=== PATIENT | male | born 1965 | race Caucasian/White ===

== ENCOUNTER 2021-11-20 22:08 | Inpatient (IN) ==
[2021-11-20] MEDS ORDERED: EPINEPHrine 1 MG/10 ML SYRINGE IV ONE ×2 (22:12→22:26)
[2021-11-20] MEDS ORDERED: CALCIUM CHLORIDE 1,000 MG/10 ML SYRINGE IV ONE (22:15)
[2021-11-20] MEDS ORDERED: DEXTROSE 50% 25 GM/50 ML SYRINGE IV ONE (22:16)
[2021-11-20] MEDS ORDERED: SODIUM BICARBONATE 50 MEQ/50 ML SYRINGE IV ONE (22:18)
[2021-11-20] MEDS ORDERED: NOREPINEPHRINE 4 MG/4 ML VIAL IV ONE (22:26)
[2021-11-20] MEDS: NOREPINEPHRINE 8 MG in SODIUM CHLORIDE 0.9% 242 ML IV PRN (22:26)
[2021-11-20] MEDS ORDERED: NALOXONE 0.4 MG/ML VIAL IV ONE (22:31)
[2021-11-20] MEDS ORDERED: PIPERACILLIN/TAZOBACTAM 3,375 MG in SODIUM CHLORIDE 0.9% 100 ML IV STA (22:32)
[2021-11-20] MEDS ORDERED: DEXTROSE 50% 25 GM/50 ML SYRINGE IV STA (22:32)
[2021-11-20] MEDS ORDERED: NOREPINEPHRINE 16 MG in SODIUM CHLORIDE 0.9% 234 ML IV PRN (22:32)
[2021-11-20] MEDS ORDERED: SODIUM CHLORIDE 0.9% 1,000 ML IV STA (22:32)
[2021-11-20] MEDS ORDERED: NALOXONE 0.4 MG/ML VIAL IV STA (22:32)
[2021-11-20 22:34] VITALS: BP 141/64
[2021-11-20 22:48] LABS: Basophils % 0.8 % (0.0-0.8); Eosinophils % 0.2 % (0.00-10.9); Hematocrit 42.9 VOL% (42.0-52.0); Hemoglobin 13.3 GM/DL (14.0-18.0); Immature Granulocytes % 3.2 %; Immature Granulocytes Absolute 0.15 #; Lymphocytes # 3.4 10*3/uL (1.4-4.0); Lymphocytes % 72.2 % (21.2-54.2); Mean Corpuscular Volume 107.3 FL (87-102); Mean Platelet Volume 12.6 FL (9.6-12.0); Monocytes % 11.5 % (1.7-12.7); NRBC # 0.07 10*3/uL; Neutrophils % 12.1 % (38.7-73.9); Platelet Count 66 T/CUMM (130-400); Red Cell Distribution Width 12.7 % (9.3-17.3); White Blood Count 4.7 T/CUMM (4-12)
[2021-11-20 22:59] LABS: Phenytoin (Dilantin) 0.8 UG/ML (10-20)
[2021-11-20 23:00] LABS: Acetaminophen < 2.0 UG/ML (10-30)
[2021-11-20] MEDS ORDERED: LACTATED RINGERS 1,000 ML IV ONE (23:00)
[2021-11-20 23:06] LABS: INR 1.1; PT Patient Result 11.9 SECS (10.5-12.0)
[2021-11-20 23:07] LABS: Lactic Acid 26.1 MMOL/L (0.4-2.0)
[2021-11-20 23:12] LABS: Prolactin 10.8 ng/mL (2.1-17.7)
[2021-11-20] MEDS ORDERED: DILTIAZEM 25 MG/5 ML VIAL IV ONE (23:18)
[2021-11-20] MEDS ORDERED: THIAMINE INJ 100 MG, FOLIC ACID INJ 1 MG, MAGNESIUM SULF INJ 2 GM, MULTIVITAMIN INJ 10 ... IV ONE (23:21)
[2021-11-20 23:22] LABS: Lymphocytes 75 % (20-55); Platelet Estimate Decreased; Segmented Neutrophils 11 % (50-85); Total Cells Counted 100
[2021-11-20] MEDS ORDERED: VANCOMYCIN INJ 1,000 MG in SODIUM CHLORIDE 0.9% 250 ML IV STA (23:22)
[2021-11-20] MEDS ORDERED: DILTIAZEM 100 MG VIAL.ADD IV ONE (23:43)
[2021-11-20] MEDS ORDERED: DILTIAZEM INJ 100 MG in SODIUM CHLORIDE 0.9% 100 ML IV SCH (23:45)
[2021-11-20] MEDS ORDERED: DILTIAZEM 50 MG/10 ML VIAL IV STA (23:59)
[2021-11-21 00:10] LABS: Alanine Aminotransferase 197 U/L (16-61); Albumin 3.6 G/DL (3.4-5.0); Alkaline Phosphatase 92 U/L (45-117); Aspartate Amino Transferase 317 U/L (0-37); Blood Urea Nitrogen 9 MG/DL (7-18); CKMB % 0.8 %; Calcium 11.2 MG/DL (8.5-10.1); Carbon Dioxide 17 MMOL/L (21-32); Glucose 301 MG/DL (74-106); Osmolality,Calculated 290.3 MOS/KG (273-304); Potassium 4.7 MMOL/L (3.5-5.1); Sodium 141 MMOL/L (136-145); Total Protein 6.8 G/DL (6.4-8.2)
[2021-11-21] MEDS ORDERED: LORazepam 2 MG/1 ML VIAL IV STA (00:10)
[2021-11-21 00:11] LABS: Estimated Glom Filtration Rate 0 ML/MIN
[2021-11-21 00:16] LABS: ABG Base Excess -10.7 MMOL/L (-2.5-2.5); ABG HCO3 18.9 MMOL/L (20-26); ABG Oxygen Saturation 88.9 % (95-100); ABG PCO2 57.6 MM HG (35-48); ABG PO2 79.5 MM HG (80-95); ABG TCO2 20.7 MMOL/L (23-27); Allen Test Positive; Pt O2 Delivery Device Ventilator
[2021-11-21] MEDS ORDERED: NOREPINEPHRINE 4 MG/4 ML VIAL IV ONE ×2 (00:17→07:34)
[2021-11-21 00:20] LABS: Bacteria,Urine Occasional /HPF (Few); Bilirubin,Urine Negative (Negative); Blood, Urine Negative (Negative); Glucose,Urine (UA) Negative (Negative); Ketones,Urine 5 mg/dL (Negative); Mucus,Urine Few /LPF (Occasional); Nitrite,Urine Negative (Negative); Protein,Urine 100 MG/DL; RBC,Urine 4 /HPF (0-4); Urine Appearance Slightly Hazy (Clear); Urine Color Amber (Yellow); Urine Specific Gravity 1.023 (1.001-1.035)
[2021-11-21 00:21] LABS: ABG PH 7.135 (7.35-7.45)
[2021-11-21] MEDS ORDERED: SODIUM BICARBONATE 50 MEQ/50 ML VIAL IV STA (00:26)
[2021-11-21 00:29] LABS: Barbiturates Screen,Urine Negative (Negative); Benzodiazepines Screen,Urine Positive (Negative); Cannabinoid Screen,Urine Negative (Negative); Opiate Screen,Urine Negative (Negative); Phencyclidine Screen,Urine Negative (Negative)
[2021-11-21] MEDS: NOREPINEPHRINE 8 MG in SODIUM CHLORIDE 0.9% 242 ML IV PRN ×2 (00:54→07:43)
[2021-11-21] MEDS ORDERED: METOPROLOL TARTRATE 5 MG/5 ML VIAL IV STA (00:59)
[2021-11-21] MEDS ORDERED: METOPROLOL TARTRATE 5 MG/5 ML VIAL IV ONE (00:59)
[2021-11-21] MEDS ORDERED: VECURONIUM 10 MG VIAL IV ONE ×2 (01:07)
[2021-11-21] MEDS ORDERED: PHENYLEPHRINE DRIP 40 MG/250 ML PREMIX IV ONE (01:14)
[2021-11-21] MEDS: PHENYLEPHRINE DRIP 40 MG/250 ML PREMIX IV PRN ×5 (01:24→09:17)
[2021-11-21] MEDS ORDERED: DIAZEPAM 10 MG/2 ML SYRINGE IV STA (02:34)
[2021-11-21] MEDS ORDERED: DIGOXIN 0.5 MG/2 ML AMP IV STA (02:34)
[2021-11-21] MEDS ORDERED: LACTATED RINGERS 1,000 ML IV ONE (02:46)
[2021-11-21] MEDS ORDERED: DIGOXIN 0.5 MG/2 ML AMP IV ONE ×2 (02:50→03:09)
[2021-11-21] MEDS ORDERED: MIDAZOLAM 100 MG in SODIUM CHLORIDE 0.9% 80 ML IV SCH (03:00)
[2021-11-21] MEDS ORDERED: AMIODARONE 450 MG/9 ML VIAL IV ONE (03:19)
[2021-11-21] MEDS ORDERED: AMIODARONE INJ 450 MG in DEXTROSE 5% 241 ML IV SCH ×2 (03:22→09:22)
[2021-11-21] MEDS: VASOPRESSIN 100 UNITS in SODIUM CHLORIDE 0.9% 95 ML IV SCH ×2 (03:26→08:51)
[2021-11-21 03:45] LABS: ABG Base Excess 3.6 MMOL/L (-2.5-2.5); ABG HCO3 26.6 MMOL/L (20-26); ABG Oxygen Saturation 56.8 % (95-100); ABG PCO2 64.4 MM HG (35-48); ABG PH 7.307 (7.35-7.45); ABG TCO2 28.7 MMOL/L (23-27)
[2021-11-21 03:50] LABS: ABG PO2 39.3 MM HG (80-95)
[2021-11-21 03:59] LABS: Hematocrit 38.7 VOL% (42.0-52.0); Hemoglobin 13.3 GM/DL (14.0-18.0); Immature Granulocytes % 1.5 %; Immature Granulocytes Absolute 0.01 #; Lymphocytes # 0.3 10*3/uL (1.4-4.0); Lymphocytes % 41.5 % (21.2-54.2); Mean Corpuscular HGB Conc 34.4 GM/DL (32-36); Mean Corpuscular Volume 96.5 FL (87-102); Mean Platelet Volume 11.4 FL (9.6-12.0); Monocytes % 3.1 % (1.7-12.7); Neutrophils % 53.9 % (38.7-73.9); Platelet Count 64 T/CUMM (130-400); Red Blood Count 4.01 MC/CUMM (3.8-5.5); Red Cell Distribution Width 12.9 % (9.3-17.3)
[2021-11-21] MEDS ORDERED: ALBUTEROL 2.5 MG/3 ML NEB RESP TX PRN (04:08)
[2021-11-21] MEDS ORDERED: ONDANSETRON 4 MG/2 ML VIAL IV PRN (04:08)
[2021-11-21] MEDS ORDERED: SODIUM CHLORIDE 0.9% 1,000 ML IV PRN (04:21)
[2021-11-21 04:29] LABS: Albumin 2.3 G/DL (3.4-5.0); Bilirubin,Total 0.9 MG/DL (0.20-1.00); Calcium 7.2 MG/DL (8.5-10.1); Osmolality,Calculated 298.1 MOS/KG (273-304); Potassium 2.8 MMOL/L (3.5-5.1); Total Protein 4.9 G/DL (6.4-8.2)
[2021-11-21] MEDS ORDERED: fentaNYL INJ 1,250 MCG in SODIUM CHLORIDE 0.9% 225 ML IV PRN (04:29)
[2021-11-21] MEDS ORDERED: PANTOPRAZOLE 40 MG VIAL IV SCH (04:30)
[2021-11-21 04:31] LABS: White Blood Count 0.7 T/CUMM (4-12)
[2021-11-21 04:33] LABS: High Sensitive Troponin I* 13258.6 ng/L (0-78)
[2021-11-21] MEDS: HYDROCORTISONE 100 MG VIAL IV SCH ×2 (04:40→09:53)
[2021-11-21 04:44] LABS: INR 1.3
[2021-11-21 04:53] LABS: ABG Base Excess 1.8 MMOL/L (-2.5-2.5); ABG HCO3 28.6 MMOL/L (20-26); ABG Oxygen Saturation 75.1 % (95-100); ABG PCO2 52.8 MM HG (35-48); ABG PH 7.351 (7.35-7.45); ABG PO2 45.1 MM HG (80-95); ABG TCO2 30.2 MMOL/L (23-27)
[2021-11-21] MEDS ORDERED: POTASSIUM CHLORIDE RIDER 10 MEQ/100 ML PREMIX IV PRN (04:57)
[2021-11-21] MEDS ORDERED: MAGNESIUM SULF RIDER 2 GM/50 ML PREMIX IV PRN ×2 (04:57→05:05)
[2021-11-21] MEDS ORDERED: MAGNESIUM SULF RIDER 4 GM/100 ML PREMIX IV PRN (04:57)
[2021-11-21 04:59] LABS: Band Neutrophils 2 % (0-10); Lymphocytes 64 % (20-55); Platelet Estimate Decreased; Segmented Neutrophils 28 % (50-85); Total Cells Counted 100
[2021-11-21] MEDS ORDERED: MEROPENEM 500 MG in SODIUM CHLORIDE 0.9% 100 ML IV SCH (05:00)
[2021-11-21] MEDS ORDERED: LACTATED RINGERS 1,000 ML IV SCH (05:30)
[2021-11-21] MEDS: POTASSIUM CHLORIDE RIDER 20 MEQ/100 ML PREMIX IV PRN ×2 (05:45→06:51)
[2021-11-21] MEDS ORDERED: ALBUTEROL/IPRATROPIUM 3 ML NEB RESP TX SCH (07:00)
[2021-11-21] MEDS ORDERED: MIDAZOLAM 100 MG in SODIUM CHLORIDE 0.9% 80 ML IV PRN (07:52)
[2021-11-21] MEDS ORDERED: MINERAL OIL/PETROLATUM OPH OINT 3.5 GM TUBE BOTH EYES SCH (09:00)
[2021-11-21 09:22] LABS: ABG Oxygen Saturation 92.1 % (95-100); ABG PH 7.397 (7.35-7.45); ABG PO2 66.5 MM HG (80-95); ABG TCO2 22.1 MMOL/L (23-27)
[2021-11-21 09:28] LABS: Basophils % 0.5 % (0.0-0.8); Hematocrit 41.3 VOL% (42.0-52.0); Hemoglobin 14.3 GM/DL (14.0-18.0); Immature Granulocytes % 0.5 %; Immature Granulocytes Absolute 0.01 #; Lymphocytes # 0.4 10*3/uL (1.4-4.0); Lymphocytes % 18.4 % (21.2-54.2); Mean Corpuscular HGB Conc 34.6 GM/DL (32-36); Mean Corpuscular Volume 95.8 FL (87-102); Mean Platelet Volume 11.7 FL (9.6-12.0); Monocytes % 1.1 % (1.7-12.7); Neutrophils % 79.5 % (38.7-73.9); Platelet Count 63 T/CUMM (130-400); Red Blood Count 4.31 MC/CUMM (3.8-5.5); Red Cell Distribution Width 12.9 % (9.3-17.3); White Blood Count 1.9 T/CUMM (4-12)
[2021-11-21 09:48] LABS: INR 1.3; PT Patient Result 13.9 SECS (10.5-12.0)
[2021-11-21 09:51] LABS: Band Neutrophils 6 % (0-10); Eosinophils 3 % (0-10); Lymphocytes 15 % (20-55); Platelet Estimate Decreased; Segmented Neutrophils 72 % (50-85); Total Cells Counted 100
[2021-11-21 09:59] LABS: CKMB % 3.8 %
[2021-11-21 10:02] LABS: High Sensitive Troponin I* 32023.2 ng/L (0-78)
[2021-11-21] MEDS ORDERED: MORPHINE 4 MG/1 ML VIAL IV PRN (10:44)
[2021-11-21] MEDS ORDERED: LORazepam 2 MG/1 ML VIAL IV PRN (10:44)
[2021-11-21] MEDS ORDERED: VANCOMYCIN INJ 1,500 MG in SODIUM CHLORIDE 0.9% 500 ML IV SCH (11:00)
[2021-11-21] MEDS ORDERED: INSULIN REGULAR 100 UNIT/ML IV SCH (12:00)
[2021-11-21 13:50] LABS: Calcium 7.5 MG/DL (8.5-10.1); Osmolality,Calculated 293.6 MOS/KG (273-304)
== END 2021-11-21 11:55 | disposition expired | DRG 896 ==
LOC: N.ED 22:08 → N.ICU 11-21 00:28
PROVIDERS: ADMIT Family Medicine; ATTEND Family Medicine